=== PATIENT | female | born 1995 | race Caucasian/White ===

== ENCOUNTER → 2022-01-22 | Outpatient (CLI) | payer BC | END | disposition home or self-care (01) | LOC: LABWHC1 07:12 | PROVIDERS: ATTEND Obstetrics & Gynecology Obstetrics | DX: O02.1 Missed abortion (principal); Z3A.00 Weeks of gestation of pregnancy not specified | CPT/HCPCS: 36415; 84144; 84702; 86850; 86900; 86901 ==

== ENCOUNTER → 2022-01-24 | Outpatient (CLI) | payer BC | END | disposition home or self-care (01) | LOC: LABWHC1 07:10 | PROVIDERS: ATTEND Obstetrics & Gynecology Obstetrics | DX: O02.1 Missed abortion (principal); Z3A.00 Weeks of gestation of pregnancy not specified | CPT/HCPCS: 36415; 84702 ==

== ENCOUNTER → 2022-01-28 | Outpatient (CLI) | payer BC ==
[2022-01-28 23:20] LABS: Basophils # (A) 0.07 X 10*3/uL (0.00-0.10); Basophils % (A) 0.6 %; Eosinophils # (A) 0.03 X 10*3/uL (0.04-0.35); Eosinophils % (A) 0.3 %; HCT 40.5 % (37.2-46.3); HGB 13.5 g/dL (12.0-15.0); Immature Grans, Automated 0.4 %; Lymphocytes % (A) 18.5 %; MCH 29.2 pg (27.0-32.0); MCHC 33.3 g/dL (32.0-37.0); MCV 87.7 fL (80.0-97.0); Mean Platelet Volume 10.1 fL (9.5-12.2); Monocytes # (A) 0.68 X 10*3/uL (0.20-1.00); Monocytes % (A) 6.3 %; NRBC Per 100 WBC 0 /100 WBCS (0.0-0.0); Neutrophils # (A) 8.02 X 10*3/uL (1.80-7.70); Neutrophils % (A) 73.9 %; Platelet Count 415 X 10*3/uL (140-440); RBC 4.62 X 10*6/uL (4.10-5.20); RDW 12.1 % (11.5-14.5); WBC 10.84 X 10*3/uL (4.50-10.00)
== END | disposition home or self-care (01) ==
LOC: LABPAT 16:09
PROVIDERS: ATTEND Obstetrics & Gynecology Obstetrics
DX: Z01.812 Encounter for preprocedural laboratory examination (principal); O02.1 Missed abortion
CPT/HCPCS: 85025; 86850; 86900; 86901

== ENCOUNTER 2022-01-29 10:16 | Day surgery (SDC) | payer BC ==
[~2022-01-29 10:16] MED LIST: Pre Op ABX Message 1 EACH MISC MISCELLANE ONE
[2022-01-29 11:09] VITALS: RESP 16; TEMP 97
[2022-01-29] MEDS ORDERED: ONDANSETRON 4 MG/2 ML VIAL ONE (11:12)
[2022-01-29] MEDS ORDERED: LACTATED RINGERS 1,000 ML IV ONE (11:15)
[2022-01-29] MEDS ORDERED: ONDANSETRON 4 MG/2 ML VIAL IVP ONE (11:25)
[2022-01-29] MEDS ORDERED: DEXAMETHASONE SOD PHOSPHATE 4 MG/ML 1 ML VIAL IVP ONE (11:25)
[2022-01-29] MEDS ORDERED: LIDOCAINE 2% INJ 20 MG/ML (2 ML VIAL) ONE (12:10)
[2022-01-29] MEDS ORDERED: fentaNYL (PF) 50 MCG/ML 2 ML AMP ONE (12:10)
[2022-01-29] MEDS ORDERED: MIDAZOLAM 2 MG/2 ML VIAL ONE (12:10)
[2022-01-29] MEDS ORDERED: PROPOFOL 10 MG/ML 20 ML VIAL IV ONE (12:10)
[2022-01-29] MEDS ORDERED: METHYLERGONOVINE 0.2 MG/ML 1 ML AMP ONE (12:10)
[2022-01-29] MEDS ORDERED: KETOROLAC 15 MG/ML 1 ML VIAL ONE (12:10)
--- NOTE | 2022-01-29 12:20 | P.HPOB ---
History of Present Illness H&P Date: 01/29/22 Chief Complaint: Blighted ovum This is a 26-year-old female 1 para 0 that noted discrepancy in dates and ultrasound. Gestational sac was appreciated no embryo was noted. Quantitative hCGs were drawn personally 40,000 on day 1 repeated 2 days later noticed a drop to 38,000. Patient denies vaginal bleeding. Patient's blood type is O+. Patient is counseled on failed first trimester . Review of Systems Constitutional: Denies chills, Denies fatigue, Denies fever Ears, nose, mouth and throat: Denies headache Cardiovascular: Denies leg edema Respiratory: Denies dyspnea Gastrointestinal: Denies nausea, Denies vomiting Genitourinary: Reports Past Medical History Past Medical History: Asthma History of Any Multi-Drug Resistant Organisms: None Reported Past Surgical History: No Surgical Hx Reported Past Anesthesia/Blood Transfusion Reactions: No Reported Reaction Past Psychological History: No Psychological Hx Reported Smoking Status: Never smoker Past Alcohol Use History: None Reported Past Drug Use History: Marijuana Additional Drug Use History / Comment(s): SOCIALLY Medications and Allergies Home Medications Medication Instructions Recorded Confirmed Type No Known Home Medications 01/29/22 01/29/22 History Allergies Allergy/AdvReac Type Severity Reaction Status Date / Time No Known Allergies Allergy Verified 01/29/22 10:52 Exam Osteopathic Statement: *. No significant issues noted on an osteopathic structural exam other than those noted in the History and Physical/Consult. Vital Signs Temp Pulse Resp BP Pulse Ox 01/29/22 11:00 97.0 F L 78 16 116/55 98 Intake and Output 01/28/22 01/29/22 01/29/22 22:59 06:59 14:59 Intake Total 400 Balance 400 Intake: IV 400 Other: Weight 81 kg Targeted physical exam is from the date and unit coordinator a well-nourished well- developed female in no acute distress, breathing is nonlabored, heart has a regular rhythm, abdomen is soft and nontender, genitourinary exam is deferred. Assessment and Plan (1) Blighted ovum Current Visit: Yes Status: Acute Code(s): O02.0 - BLIGHTED OVUM AND NONHYDATIDIFORM MOLE SNOMED Code(s): 63859515 Plan: 26-year-old 1 para 0 at approximately 7 weeks 2 days by ultrasound. I did open is noted. No yolk sac no pole is appreciated. Dropping clots are noted on lab work. Patient is counseled on failed first trimester . Patient is offered medical versus surgical management. Patient desires surgical management. Procedure is reviewed and questions are answered. Patient states understanding and wishes to proceed.
--- NOTE | 2022-01-29 12:34 | P.OP ---
Date of Procedure: 01/29/22 Preoperative Diagnosis: Blighted ovum Postoperative Diagnosis: Same Procedure(s) Performed: Suction dilation and curettage Anesthesia: MAC Surgeon: Ladan Bowden Estimated Blood Loss (ml): 10 IV fluids (ml): 400 Urine output (ml): 200 Pathology: none sent (Uterine contents) Condition: stable Disposition: PACU Indications for Procedure: Blighted ovum 7 weeks 2 days, blood type O+ Operative Findings: Moderate amount of products of conception appreciated on suction dilation curettage Description of Procedure: Patient was taken back to the operating suite were general anesthesia was obtained without difficulty by the anesthesia department. She was prepped and draped in normal sterile fashion in the dorsolithotomy position [place] catheter was used to drain the bladder clear yellow urine. A weighted speculum was placed in the posterior vaginal vault intralipids the cervix is visualized and grasped with a single-tooth tenaculum. The cervix was then serially dilate d. An 8 curette suction curette was placed through the cervix and toward the endometrial cavity, a moderate amount of products of conception were removed from the uterus after 2 passes a gentle curettage was performed after minimal tissue and additional pass of the suction curet was performed to ensure all products were removed from the patient's uterus. Minimal bleeding was appreciated, uterus is noted to be firm. Methergine was given IM. All instruments were removed from the patient's vaginal vault. Patient tolerated procedure well. All counts correct 2.
[2022-01-29 13:44] VITALS: BP 111/76; PULSE 89
== END 2022-01-29 13:57 | disposition home or self-care (01) ==
LOC: OR 10:16
PROVIDERS: ATTEND Obstetrics & Gynecology Obstetrics
DX: O02.0 Blighted ovum and nonhydatidiform mole (principal); J45.909 Unspecified asthma, uncomplicated
CPT/HCPCS: 88305; 59820; J2250; J1100; J2210; J2405; J3010; J1885; J2704; J2001